=== PATIENT | female | born 1940 | race Caucasian/White ===

== ENCOUNTER 2018-12-21 06:56 | Day surgery (SDC) | payer OTHER, BC ==
[2018-12-20 11:46] VITALS: BMI 23.1
[2018-12-21 08:48] VITALS: TEMP 97.5
[2018-12-21 11:45] VITALS: BP 100/48; PULSE 73
--- NOTE | 2018-12-24 11:13 | PATH ---
Surgical Pathology Report Patient Name: KEN AYON [facility]. Rec. #: [id number] /Age/Gender: 1940 (Age: 78) / F Account: [id number] Location: [facility]-ENDOSCOPY Taken: 12/21/2018 Received: 12/21/2018 Reported: 12/24/2018 Physicians: Nabeel Craig M.D. Specimen(s) Received SIGMOID Clinical History Screening, family history of colon cancer Postoperative diagnosis: Sigmoid stricture, diverticulosis Final Diagnosis COLON, SIGMOID STRICTURE, BIOPSY: COLONIC MUCOSA WITH FOCAL HYPERPLASTIC CHANGES. NO ADENOMATOUS CHANGES OR CARCINOMA IDENTIFIED. Comment: Recommend correlation with clinical findings and follow up as clinically indicated. Electronically Signed Sherif Mack M.D. Gross Description Received in formalin, labeled "biopsy sigmoid stricture" is a dunham, irregular portion of soft tissue measuring 0.4 cm. in greatest dimension. The specimen is submitted in toto in one cassette. /12/21/2018 saudi12/21/2018
== END 2018-12-21 11:45 | disposition home or self-care (01) ==
LOC: JASU-ENDO 06:56
PROVIDERS: ATTEND Internal Medicine Gastroenterology
PROC: 0DBN8ZX Excision of Sigmoid Colon, Via Natural or Artificial Opening Endoscopic, Diagnostic (ICD-10-PCS; principal; 2018-12-21 08:00)
DX: Z12.11 Encounter for screening for malignant neoplasm of colon (principal); K57.30 Diverticulosis of large intestine without perforation or abscess without bleeding
CPT/HCPCS: 74270-TC-FY; 88305-TC

== ENCOUNTER → 2020-05-29 | Day surgery (SDC) | payer OTHER, BC ==
--- OUTSIDE RECORDS SUMMARY | 2020-05-29 14:43 | XMS ---
:1940 Author Organization [facility] Support Name Relationship Address Phone RE, RETIRED Unavailable Unavailable Unavailable RE Unavailable Unavailable Unavailable ANDREW GIBSON DAUGHTER [address] [place] [address] Re-disclosure Warning The records that you are about to access may contain information from federally- assisted alcohol or drug abuse programs. If such information is present, then the following federally mandated warning applies: This information has been disclosed to you from records protected by federal confidentiality rules (42 CFR part 2). The federal rules prohibit you from making any further disclosure of this information unless further disclosure is expressly permitted by the written consent of the person to whom it pertains or as otherwise permitted by 42 CFR part 2. A general authorization for the release of medical or other information is NOT sufficient for this purpose. The Federal rules restrict any use of the information to criminally investigate or prosecute any alcohol or drug abuse patient.The records that you are about to access may contain highly sensitive health information, the redisclosure of which is protected by Article 27-F of the [facility] Public Health law. If you continue you may haveaccess to information: Regarding HIV / AIDS; Provided by facilities licensed or operated by the [facility] Office of Mental Health; or Provided by the [facility] Office for People With Developmental Disabilities. If such information is present, then the following [facility] mandated warning applies: This information has been disclosed to you from confidential records which are protected by state law. State law prohibits you from making any further disclosure of this information without the specific written consent of the person to whom it pertains, or as otherwise permitted by law. Any unauthorized further disclosure in violation of state law may result in a fine or prison sentence or both. A general authorization for the release of medical or other information is NOT sufficient authorization for further disclosure. Insurance Providers Payer name Policy type Policy ID Covered Covered libertarian's Policy P george / Coverage libertarian ID relationship to Faria Inf ormation type faria BC PPO [id number] SP [id number] MEDICARE [id number] SP [id number] 21 1 Results ID Date Data Source [id number] 05/25/2020 01:08:00 PM EDT [facility] Name Value Range Interpretation Description Data Sup porting Code Source(s) Document(s ) SARS [facility] coronavirus 2 RNA This lab was ordered by [facility] and reported by [facility]. Procedure
--- NOTE | 2020-06-01 14:29 | OP ---
DATE OF OPERATION: 05/29/2020 PREOPERATIVE DIAGNOSIS: Right breast mass 12 o'clock, 3 cm from the nipple. POSTOPERATIVE DIAGNOSIS: Right breast mass 12 o'clock, 3 cm from the nipple. PROCEDURE: Right breast ultrasound-guided core biopsy with clip placement. ANESTHESIA: Local. ATTENDING SURGEON: Erwin Miller MD ESTIMATED BLOOD LOSS: Minimal. COMPLICATIONS: None. PROCEDURE: Patient was made aware of the risks and benefits of the procedure and consented. She was placed in the supine position. Under sterile conditions with 2% lidocaine for local anesthesia, small desire was made in the skin. Using a 10-gauge suction biopsy device via lateral approach under ultrasound guidance multiple cores were obtained and submitted to Pathology. Likewise, under ultrasound guidance a bow tie clip was placed into the biopsy region. Well tolerated by patient. Steri-Strip and a sterile bandage were applied. Will contact her with the results. ERWIN MILLER M.D. [id number]
--- NOTE | 2020-06-01 14:37 | PATH ---
Surgical Pathology Report Patient Name: KEN AYON [facility]. Rec. #: [id number] /Age/Gender: 1940 (Age: 79) / F Account: [id number] Location: [facility] BREAST CENT Taken: 05/29/2020 Received: 05/29/2020 Reported: 06/01/2020 Physicians: Erwin Miller M.D. Specimen(s) Received RIGHT BREAST 12:00 1-3 CM FN CORE BX Clinical History Non-palpable lesion Ultrasound findings: Suspicious Final Diagnosis BREAST, RIGHT, 12:00, 1-3 CM FN, CORE BIOPSY: BENIGN BREAST TISSUE SHOWING STROMAL FIBROSIS. Electronically Signed Margarita Quick M.D. Gross Description Received in formalin labeled "right breast 12:00, 1-3 cmfn," is a 1.6 x 1.2 x 0.3 cm aggregate of multiple dunham-yellow, irregular to cylindrical portions of fibroadipose tissue. The formalin is filtered and the specimen is entirely submitted in one cassette. Time to formalin fixation: < 1 minute Total formalin fixation time: Approximately 6 hours 05/29/2020 [facility]/05/29/2020
== END | disposition home or self-care (01) ==
LOC: FRADUS-SUR 13:29
PROVIDERS: ATTEND Surgery Surgical Oncology
PROC: 0HBT3ZX Excision of Right Breast, Percutaneous Approach, Diagnostic (ICD-10-PCS; principal; 2020-05-29)
DX: N60.31 Fibrosclerosis of right breast (principal); N63.10 Unspecified lump in the right breast, unspecified quadrant
CPT/HCPCS: 19083; 77065-TC; 87899; 88305-TC; A4648

== ENCOUNTER 2020-06-03 04:55 | Day surgery (SDC) | payer OTHER, BC ==
[2020-06-02 14:17] VITALS: BMI 22.3
--- OUTSIDE RECORDS SUMMARY | 2020-06-03 04:58 | XMS ---
:1940 [facility] Support Name Relationship Address Phone RE Unavailable Unavailable Unavailable RE Unavailable Unavailable Unavailable ARTHUR DAUGHTER [address] [place] [address] Re-disclosure Warning The records that you are [...] is protected by Article 27-F of the [facility] Public Health law. If you continue you may haveaccess to information: Regarding HIV / AIDS; Provided by facilities licensed or operated by the [facility] Office of Mental Health; or Provided by the [facility] Office for People With Developmental Disabilities. If such information is present, then the following [facility] mandated warning applies: This information has been [...] law may result in a fine or chcf sentence or both. A general authorization for the release of medical or other information is NOT sufficient authorization for further disclosure. Insurance Providers Payer name Policy type Policy ID Covered Covered alliance party's Policy P george / Coverage alliance party ID relationship to Faria Inf ormation type faria BC PPO [id number] SP [id number] MEDICARE [id number] SP [id number] 21 1 MEDICARE [id number] SP [id number] 21 1 Results ID Date Data Source [id number] 05/29/2020 08:20:00 AM EDT [facility] Name Value Range Interpretation Description Data Sup porting Code Source(s) Document(s ) SARS [facility] coronavirus 2 RNA This lab was ordered by [facility] and reported by [facility]. ID Date Data Source [id number] 05/28/2020 09:31:00 AM EDT [facility] Name Value Range Interpretation Description Data Sup porting Code Source(s) Document(s ) SARS [facility] coronavirus 2 RNA This lab was ordered by [facility] and reported by [facility]. ID Date Data Source [id number] 05/25/2020 01:08:00 PM EDT [facility] Name Value Range Interpretation Description Data Sup porting Code Source(s) Document(s ) SARS [facility] coronavirus 2 RNA This lab was ordered by [facility] and reported by [facility]. Procedure
[2020-06-03 10:20] VITALS: TEMP 97.6
[2020-06-03 11:37] VITALS: BP 166/70; PULSE 60
--- NOTE | 2020-06-04 17:59 | PATH ---
Surgical Pathology Report Patient Name: KEN AYON [facility]. Rec. #: [id number] /Age/Gender: 1940 (Age: 79) / F Account: [id number] Location: [facility]-END[facility] Taken: 06/03/2020 Received: 06/03/2020 Reported: 06/04/2020 Physicians: Nabeel Craig M.D. Specimen(s) Received A: SECOND PORTION AND BULB OF DUODENUM B: GASTRIC FUNDUS POLYPS C: ANTRUM D: GE JUNCTION Clinical History GIST tumor surveillance Postoperative diagnosis: Hiatal hernia, reflux esophagitis, duodenitis, gastric fundus, submucosal nodules-history of GIST Final Diagnosis A. DUODENUM, SECOND PORTION AND BULB, BIOPSY: DUODENAL MUCOSA WITH FOCAL SMALL LYMPHOID AGGREGATE. B. GASTRIC FUNDUS, POLYPS, BIOPSY: POLYPOID GASTRIC BODY MUCOSA WITH MILD CHRONIC GASTRITIS. IMMUNOHISTOCHEMICAL STAIN FOR H. PYLORI IS NEGATIVE. C. ANTRUM, BIOPSY: GASTRIC ANTRAL MUCOSA WITH MILD CHRONIC GASTRITIS. IMMUNOHISTOCHEMICAL STAIN FOR H. PYLORI IS NEGATIVE. D. GE JUNCTION, BIOPSY: MINUTE FRAGMENT OF SQUAMOCOLUMNAR MUCOSA WITH FOCAL INTESTINAL METAPLASIA. NO DYSPLASIA IDENTIFIED. Comment: Suggest clinical and endoscopic correlation. Positive and negative controls (internal if applicable) show appropriate results. Electronically Signed Britt Dykes M.D. Gross Description A. Received in formalin, labeled "second portion and bulb of duodenum biopsy" are 3 dunham, irregular portions of soft tissue averaging 0.3 cm. in greatest dimension. The specimens are submitted in toto in one cassette. B. Received in formalin, labeled "gastric fundus polyps biopsy" are 5 dunham, irregular portions of soft tissue ranging from 0.2-0.4 cm. in greatest dimension. The specimens are submitted in toto in one cassette. C. Received in formalin, labeled "antrum biopsy" is a dunham, irregular portion of soft tissue measuring less than 0.1 cm. in greatest dimension. The specimen is submitted in toto in one cassette. D. Received in formalin, labeled "GE junction biopsy" is a dunham, irregular portion of soft tissue measuring less than 0.1 cm. in greatest dimension. The specimen is submitted in toto in one cassette. DL06/03/2020 saudi06/03/2020
== END 2020-06-03 11:33 | disposition home or self-care (01) ==
LOC: JASU-ENDO 04:55
PROVIDERS: ATTEND Internal Medicine Gastroenterology
PROC: 0DB68ZX Excision of Stomach, Via Natural or Artificial Opening Endoscopic, Diagnostic (ICD-10-PCS; 2020-06-03)
PROC: 0DB48ZX Excision of Esophagogastric Junction, Via Natural or Artificial Opening Endoscopic, Diagnostic (ICD-10-PCS; 2020-06-03)
PROC: 0DB98ZX Excision of Duodenum, Via Natural or Artificial Opening Endoscopic, Diagnostic (ICD-10-PCS; principal; 2020-06-03 10:00)
DX: K21.0 Gastro-esophageal reflux disease with esophagitis (principal); K44.9 Diaphragmatic hernia without obstruction or gangrene; K29.80 Duodenitis without bleeding; K31.7 Polyp of stomach and duodenum; K29.50 Unspecified chronic gastritis without bleeding
CPT/HCPCS: 88305-TC; 88342-TC